=== PATIENT | female | born 1985 | race Caucasian/White ===

== ENCOUNTER → 2017-04-29 | Outpatient (CLI) | payer OTHER ==
[~2017-04-29] MED LIST: LABE100 PO; Verotin-Gr Cap1 EACH PO
[2017-04-29 12:17] LABS: Source, Urine Clean Catch
[2017-04-29 18:27] LABS: Appearance, Urine Cloudy (Clear); Bilirubin, Urine Neg (Neg); Blood, Urine 2+ (Neg); Color, Urine Yellow (P-Yellow); Glucose Qualitative, Urine Neg (Neg); Ketones, Urine Neg (Neg); Leukocyte Esterase, Urine 3+ (Neg); Nitrite, Urine Neg (Neg); Protein, Urine 2+ (Neg); Specific Gravity, Urine 1.025 (1.003-1.022); Urobilinogen, Urine NORM (Normal)
[2017-04-29 18:47] LABS: Amorphous Heavy (0-Heavy); Calcium Oxalate Crystals Mod /hpf
[2017-04-29 18:48] LABS: Red Blood Cells, Urine 0-2 /hpf (0-2)
[2017-04-29 18:49] LABS: Bacteria Mod /hpf; Squamous Epithelial Cells Few /hpf (Few)
== END | disposition home or self-care (01) ==
LOC: LAB 12:16
PROVIDERS: Obstetrics & Gynecology
DX: R82.99 Other abnormal findings in urine (principal)
CPT/HCPCS: 81001; 87086

== ENCOUNTER → 2017-05-06 | Outpatient (CLI) | payer OTHER | LOC: LAB 09:43 | DX: Z36.85 Encounter for antenatal screening for Streptococcus B (principal) | CPT/HCPCS: 87081; 87653 ==

== ENCOUNTER 2017-05-17 17:08 | Inpatient (IN) | payer OTHER ==
[~2017-05-17] VITALS: Ht 160 cm; Wt 91.0 kg
[2017-05-17 18:17] LABS: Protein, Urine Quantitative 59.8 mg/dL (0.0-11.9)
[2017-05-17 20:28] LABS: BASOPHILS ABSOLUTE AUTO 0.03 K/mm3 (0.00-0.23); BASOPHILS PERCENT AUTO 0 % (0-2); EOSINOPHILS ABSOLUTE AUTO 0.07 K/mm3 (0.00-0.68); EOSINOPHILS PERCENT AUTO 1 % (0-6); Hematocrit 37.2 % (33.0-51.0); Hemoglobin 12.4 g/dL (11.5-16.0); IMMATURE GRAN ABSOLUTE AUTO 0.07 K/mm3 (0.00-0.10); IMMATURE GRAN PERCENT AUTO 1 % (0-1); LYMPHOCYTES ABSOLUTE AUTO 1.76 K/mm3 (0.84-5.20); LYMPHOCYTES PERCENT AUTO 17 % (21-46); MONOCYTES ABSOLUTE AUTO 1.08 K/mm3 (0.16-1.47); MONOCYTES PERCENT AUTO 10 % (4-13); Mean Corpuscular HGB 27.1 pg (26.0-34.0); Mean Corpuscular HGB Conc 33.3 g/dL (31.5-36.5); Mean Corpuscular Volume 81 fL (80-100); Mean Platelet Volume 12.6 fL (9.1-12.4); NEUTROPHILS ABSOLUTE AUTO 7.41 K/mm3 (1.96-9.15); NEUTROPHILS PERCENT AUTO 71 % (41-73); Platelet Count 180 K/mm3 (150-400); RDW Coefficient Variation 12.8 % (11.7-14.2); RDW Standard Deviation 37.9 fL (35.1-46.3); Red Blood Cell Count 4.57 M/mm3 (3.80-5.20); White Blood Cell Count 10.42 K/mm3 (4.00-11.30)
[2017-05-17] MEDS ORDERED: Verotin-Gr Cap1 EACH PO (21:37)
[2017-05-18 08:17] LABS: PCO2 Cord - Venous 81.3 mmHg (40-50); PO2 Cord - Venous 12.8 mmHg (28-32); pH Umbilical Cord - Venous 6.98 (7.26-7.35)
[2017-05-18 08:19] LABS: PO2 Cord - Arterial 14.4 mmHg (16-20)
[2017-05-19 06:18] LABS: Hematocrit 31.2 % (33.0-51.0); Hemoglobin 10.4 g/dL (11.5-16.0); Mean Corpuscular HGB 27.3 pg (26.0-34.0); Mean Corpuscular HGB Conc 33.3 g/dL (31.5-36.5); Mean Corpuscular Volume 82 fL (80-100); Mean Platelet Volume 11.5 fL (9.1-12.4); Platelet Count 189 K/mm3 (150-400); RDW Standard Deviation 38.8 fL (35.1-46.3); Red Blood Cell Count 3.81 M/mm3 (3.80-5.20); White Blood Cell Count 11.78 K/mm3 (4.00-11.30)
[2017-05-20] MEDS ORDERED: LABE100 PO (10:53)
== END 2017-05-20 17:00 | disposition home or self-care (01) | DRG 775 ==
LOC: OBS 17:08 → BC 19:00 → OBS 19:46 → BC 19:49
PROVIDERS: Obstetrics & Gynecology
PROC: 10E0XZZ Delivery of Products of Conception, External Approach (ICD-10-PCS; principal; 2017-05-18)
PROC: 10907ZC Drainage of Amniotic Fluid, Therapeutic from Products of Conception, Via Natural or Artificial Opening (ICD-10-PCS; 2017-05-18)
PROC: 3E0P7VZ Introduction of Hormone into Female Reproductive, Via Natural or Artificial Opening (ICD-10-PCS; 2017-05-18)
DX: O14.94 Unspecified pre-eclampsia, complicating childbirth (principal); O76 Abnormality in fetal heart rate and rhythm complicating labor and delivery; Z37.0 Single live birth; Z3A.37 37 weeks gestation of pregnancy; Z88.0 Allergy status to penicillin
CPT/HCPCS: 36415; 51702; 59025; 80053; 81001; 81003; 81050; 82570; 82803; 82947; 84156; 84550; 85025; 85027; 85460; 87086; 90471; 90707; 96372; 99213; 99214; J0360; J2590; J2790; J3010; J7030; J7120

== ENCOUNTER 2017-07-03 06:20 | Day surgery (SDC) | payer OTHER ==
[~2017-07-03] VITALS: Ht 157.5 cm; Wt 76.0 kg
== END 2017-07-03 09:22 | disposition home or self-care (01) ==
LOC: ORSCSDS 06:20
PROVIDERS: Obstetrics & Gynecology
PROC: 0UT74ZZ Resection of Bilateral Fallopian Tubes, Percutaneous Endoscopic Approach (ICD-10-PCS; principal; 2017-07-03 07:30)
DX: Z30.2 Encounter for sterilization (principal); I10 Essential (primary) hypertension; Z87.891 Personal history of nicotine dependence; Z79.899 Other long term (current) drug therapy
CPT/HCPCS: 88302; J0171; J0330; J1100; J1885; J2250; J2405; J3010

== ENCOUNTER → 2022-11-06 | Outpatient (CLI) | payer OTHER ==
[2022-11-06 14:39] LABS: Candida species (DNA Probe) Positive (NEGATIVE); G. vaginalis (DNA Probe) Positive (NEGATIVE); T. vaginalis (DNA Probe) Negative (NEGATIVE)
[2022-11-08 03:10] LABS: CHLAMYDIA TRACHOMATIS, NAA Negative (Negative)
== END ==
LOC: LAB 09:53 → LAB SHORT 09:53
PROVIDERS: Advanced Practice Midwife
DX: Z11.3 Encounter for screening for infections with a predominantly sexual mode of transmission (principal); N76.0 Acute vaginitis
CPT/HCPCS: 87480; 87491; 87510; 87591; 87660

== ENCOUNTER → 2022-12-10 | Outpatient (CLI) | payer OTHER ==
[2022-12-10 14:34] LABS: Candida species (DNA Probe) Negative (NEGATIVE); G. vaginalis (DNA Probe) Positive (NEGATIVE); T. vaginalis (DNA Probe) Negative (NEGATIVE)
== END ==
LOC: LAB SHORT 11:55 → LAB 11:55
PROVIDERS: Obstetrics & Gynecology
DX: N76.0 Acute vaginitis (principal)
CPT/HCPCS: 87480; 87510; 87660

== ENCOUNTER → 2022-12-27 | Outpatient (CLI) | payer OTHER ==
[2022-12-28 12:27] LABS: Candida species (DNA Probe) Negative (NEGATIVE); G. vaginalis (DNA Probe) Negative (NEGATIVE); T. vaginalis (DNA Probe) Negative (NEGATIVE)
[2022-12-31 18:10] LABS: HPV 16 Negative (Negative); HPV 18 Negative (Negative); HPV OTHER HR TYPES Negative (Negative)
== END | disposition home or self-care (01) ==
LOC: LAB SHORT 17:08 → LAB 17:08
PROVIDERS: Obstetrics & Gynecology
DX: Z01.419 Encounter for gynecological examination (general) (routine) without abnormal findings (principal); N76.0 Acute vaginitis
CPT/HCPCS: 87480; 87510; 87624; 87660; G0145

== ENCOUNTER 2023-04-27 19:22 | Emergency (ER) | payer OTHER ==
[~2023-04-27] VITALS: Ht 157.5 cm; Wt 81.7 kg
[2023-04-27 19:50] VITALS: BP 135/86
== END 2023-04-27 20:52 | disposition home or self-care (01) ==
LOC: ER 19:22
DX: M25.512 Pain in left shoulder (principal); Z87.891 Personal history of nicotine dependence; Z88.0 Allergy status to penicillin
CPT/HCPCS: 93005; 93010; 99283-25

== ENCOUNTER 2025-04-08 09:52 | Day surgery (SDC) | payer OTHER ==
[~2025-04-08] VITALS: Ht 157.5 cm; Wt 96.5 kg
[~2025-04-08 09:52] MED LIST changes: +Oxytocin 10 Unit / ML Vial ONE
[2025-04-08] MEDS ORDERED: BUPR75 PO (10:14)
[2025-04-08] MEDS ORDERED: SPIRONOLACTONE25 MG PO (10:14)
[2025-04-08] MEDS ORDERED: TOPI100 PO (10:14)
[2025-04-08] MEDS ORDERED: FentaNYL Citrate 50 MCG/ML 2 ML Injection ONE (10:38)
[2025-04-08] MEDS ORDERED: Rocuronium Bromide 10 MG/ML 5ML Injection IV ONE (10:39)
--- NOTE | 2025-04-08 10:40 | NUR ---
04/08/25 1040 CLINTON AWAN PT RESTING ON GURNEY, CALL LIGHT IN REACH, BRAKES ON, RAILS UP. PT DENIES QUESTIONS/ NEEDS AT THIS TIME
[2025-04-08] MEDS ORDERED: Ondansetron HCl 2 MG / ML 2ML Vial ONE (11:20)
[2025-04-08] MEDS ORDERED: Dexamethasone Sod Phos 10 MG/ML 1ML VIAL ONE (11:20)
[2025-04-08] MEDS ORDERED: Glycopyrrolate 0.2 MG/ML 5ML VIAL ONE (11:23)
[2025-04-08] MEDS ORDERED: Ketorolac Tromethamine 30mg Vial ONE (11:38)
[2025-04-08] MEDS ORDERED: Sugammadex Sodium 200 MG/2ML SDV (100 MG/ML) ONE (11:39)
[2025-04-08 15:19] VITALS: BP 116/70
== END 2025-04-08 12:41 | disposition home or self-care (01) ==
LOC: ORSCSDS 09:52
PROVIDERS: Obstetrics & Gynecology
PROC: 0UDB8ZX Extraction of Endometrium, Via Natural or Artificial Opening Endoscopic, Diagnostic (ICD-10-PCS; principal; 2025-04-08 11:15)
DX: N93.9 Abnormal uterine and vaginal bleeding, unspecified (principal); N88.2 Stricture and stenosis of cervix uteri; E28.2 Polycystic ovarian syndrome; I10 Essential (primary) hypertension; E11.9 Type 2 diabetes mellitus without complications; E66.9 Obesity, unspecified; Z68.38 Body mass index [BMI] 38.0-38.9, adult; F41.8 Other specified anxiety disorders; Z79.899 Other long term (current) drug therapy; Z87.891 Personal history of nicotine dependence
CPT/HCPCS: 88305; 93005; 93010; J1100; J1885; J2405; J2590; J2704; J3010; J7120